=== PATIENT | female | born 1945 | race Caucasian/White ===

== ENCOUNTER → 2016-10-08 | Outpatient (CLI) | payer OTHER ==
[~2016-10-08] MED LIST: AMANTADINE100 M1; ASPIR 8181 MG PO; ASPIRIN325 PO; CARDIZEM CD240 MG PO; CATAPRES0.2 MG PO; HYDROCHLOROTHIA25 M2 PO; HYDROCODON-ACE1 EAC7; METROPROLOL; PAXIL10 MG; PRILOSEC20 MG PO; SKELAXIN 800 M800 M1; TOPROL XL50 MG PO; [UNRECOGNIZED DRUG - OTHER]
== END ==
LOC: HYPER 07:17
DX: L97.321 Non-pressure chronic ulcer of left ankle limited to breakdown of skin (principal); M89.671 Osteopathy after poliomyelitis, right ankle and foot; I10 Essential (primary) hypertension

== ENCOUNTER → 2016-10-21 | Outpatient (CLI) | payer OTHER | LOC: HYPER 07:08 | DX: L97.822 Non-pressure chronic ulcer of other part of left lower leg with fat layer exposed (principal); M89.671 Osteopathy after poliomyelitis, right ankle and foot; I10 Essential (primary) hypertension; L88 Pyoderma gangrenosum ==

== ENCOUNTER → 2016-11-18 | Outpatient (CLI) | payer OTHER | LOC: HYPER 07:06 | DX: L97.322 Non-pressure chronic ulcer of left ankle with fat layer exposed (principal); I10 Essential (primary) hypertension; L88 Pyoderma gangrenosum; I87.2 Venous insufficiency (chronic) (peripheral); G14 Postpolio syndrome; Z96.642 Presence of left artificial hip joint; Z98.42 Cataract extraction status, left eye; Z98.41 Cataract extraction status, right eye ==

== ENCOUNTER → 2016-12-02 | Outpatient (CLI) | payer OTHER | LOC: HYPER 07:19 | DX: L97.322 Non-pressure chronic ulcer of left ankle with fat layer exposed (principal); L88 Pyoderma gangrenosum; I87.2 Venous insufficiency (chronic) (peripheral); I10 Essential (primary) hypertension; M89.671 Osteopathy after poliomyelitis, right ankle and foot; Z96.642 Presence of left artificial hip joint; Z98.49 Cataract extraction status, unspecified eye ==

== ENCOUNTER → 2016-12-09 | Outpatient (CLI) | payer OTHER | LOC: HYPER 07:04 | DX: L97.822 Non-pressure chronic ulcer of other part of left lower leg with fat layer exposed (principal); M89.671 Osteopathy after poliomyelitis, right ankle and foot; I10 Essential (primary) hypertension; L88 Pyoderma gangrenosum; I87.2 Venous insufficiency (chronic) (peripheral); Z96.642 Presence of left artificial hip joint ==

== ENCOUNTER → 2017-01-06 | Outpatient (CLI) | payer OTHER | LOC: HYPER 06:50 | DX: L97.822 Non-pressure chronic ulcer of other part of left lower leg with fat layer exposed (principal); L97.321 Non-pressure chronic ulcer of left ankle limited to breakdown of skin; M89.671 Osteopathy after poliomyelitis, right ankle and foot; I10 Essential (primary) hypertension; L88 Pyoderma gangrenosum; I87.2 Venous insufficiency (chronic) (peripheral); Z96.642 Presence of left artificial hip joint ==

== ENCOUNTER 2019-05-18 02:28 | Inpatient (IN) | payer OTHER ==
[~2019-05-18] VITALS: Ht 162.6 cm; Wt 103.9 kg
[~2019-05-18 02:28] MED LIST changes: -HYDROCODON-ACE1 EAC7; +HYDROCODON-ACE1 EAC7 PO
--- NOTE | 2019-05-18 16:57 | NUR ---
A/O, calm and pleasant. VSS, afebriel. denied pain, no n/v. DC. left at 2pm.
[2019-05-18] MEDS ORDERED: NABUMETONE 750750 M1 PO (17:39)
[2019-05-18] MEDS ORDERED: LYRICA 75 MG CA75 MG PO (17:41)
[2019-05-18] MEDS ORDERED: ELIQUIS5 MG PO (17:42)
[2019-05-18 19:31] VITALS: BP 142/68
--- NOTE | 2019-05-18 20:07 | NUR ---
PT ARRIVED TO UNIT AT 1620 PER WC ACCOMPANIED BY VOLUNTEER.ADMISSION HX COMPLETED.VSS.DR BISWAS AND TALA CONSULTED AND MESSAGE LEFT.DR BISWAS ROUNDED ON PT.HOME MED RECONCILED AND ORDERED BY DR BISWAS.BOX SANDWICH GIVEN FOE DINNER.ATTEMPT MADE X1 FOR PIV BUT NOT SUCCESSFUL.PT REFUSED FURTHER IV STICK AND IV TEAM NOTIFIED.PT SON CAME LATER THIS EVENING AFTER SHIFT CHANGE AND WANTED TO KNOW WHY ANTIBIOTIC HASN'T BEEN STARTED.RN INFORMED HIM THAT ID HAS BEEN NOTIFIED AND WAITING FOR RETURN CALL BEFORE STARTING NEW IV ANTIBIOTIC SINCE PT WAS ALLERGIC TO VANCO THAT WAS ORDERED BY HOSPITALIST. REPORT OFF TO QUEEN LISBET.
--- NOTE | 2019-05-18 23:34 | NUR ---
Assumed pt care @1914. pt a&ox4. pt was concern that she has't recieved her abx that she came in for. Dr Araujo ordered vancomycin, but pt stated that she was allergic to vanco, pt was told to wait for a little, while nurse call the doctor for a new order. Nora the [employer] was called and she gave in an order for clindamycin 600mg, while nurse was putting in the order at exactly 2040, SEED PELLETER told nurse that she had seen pt's son wheeling pt out towards the elevator security was called to check on pt while the SEED PELLETER followed to see if she would fine the pt. nurse preparation supervisor was called as well. security later called and said, they tried to talk pt in coming back to the unit but pt refused saying that they have been waiting for their abx for hours and that's the only reason they were told to come to the hospital for. pt did not show any signs of agitation before the above incident. this nurse had helped pt about 15mins prior to the BSC. pt answered questions approp. and expressed understanding.
--- NOTE | 2019-05-19 07:41 | NUR ---
ORDERS RECEIVED FOR EVAL AND TREAT HOWEVER Pt DISCHARGED FROM HOSPITAL LAST NIGHT
--- NOTE | 2019-05-19 10:59 | NUR ---
RECEIVED OT EVAL AND TREAT ORDERS. PATIENT DISCHARGED FROM THE HOSPITAL LAST NIGHT PRIOR TO BEING EVALUATED.
== END 2019-05-18 21:00 | disposition left against medical advice (07) | DRG 603 ==
LOC: HYPER 02:28 → 4W 15:33
PROVIDERS: ADMIT Hospitalist
DX: L03.116 Cellulitis of left lower limb (principal); I10 Essential (primary) hypertension; I48.91 Unspecified atrial fibrillation; E78.00 Pure hypercholesterolemia, unspecified; J45.909 Unspecified asthma, uncomplicated; Z96.641 Presence of right artificial hip joint; Z53.29 Procedure and treatment not carried out because of patient's decision for other reasons; Z79.01 Long term (current) use of anticoagulants; Z88.1 Allergy status to other antibiotic agents; Z88.5 Allergy status to narcotic agent; Z88.0 Allergy status to penicillin; Z88.2 Allergy status to sulfonamides; Z88.8 Allergy status to other drugs, medicaments and biological substances; Z98.42 Cataract extraction status, left eye; Z98.41 Cataract extraction status, right eye
CPT/HCPCS: 10047

== ENCOUNTER → 2020-01-31 | Outpatient (CLI) | payer OTHER ==
[~2020-01-31] MED LIST changes: +ELIQUIS5 MG PO; +LYRICA 75 MG CA75 MG PO; +NABUMETONE 750750 M1 PO
== END ==
LOC: SJCVC 10:00
PROVIDERS: ATTEND Internal Medicine
DX: I48.91 Unspecified atrial fibrillation (principal); R94.31 Abnormal electrocardiogram [ECG] [EKG]; I10 Essential (primary) hypertension; E78.5 Hyperlipidemia, unspecified; G14 Postpolio syndrome; J45.909 Unspecified asthma, uncomplicated; K21.9 Gastro-esophageal reflux disease without esophagitis; Z79.899 Other long term (current) drug therapy

== ENCOUNTER → 2020-08-10 | Outpatient (CLI) | payer OTHER | LOC: SJCVCIMAG 08:22 | PROVIDERS: ATTEND Internal Medicine | DX: I08.3 Combined rheumatic disorders of mitral, aortic and tricuspid valves (principal); I11.9 Hypertensive heart disease without heart failure; E78.5 Hyperlipidemia, unspecified; G14 Postpolio syndrome; J45.909 Unspecified asthma, uncomplicated; K21.9 Gastro-esophageal reflux disease without esophagitis; Z79.899 Other long term (current) drug therapy ==